=== PATIENT | male | born 1985 | race Caucasian/White ===

== ENCOUNTER 2023-10-03 11:58 | Outpatient (REF) | payer OTHER, SELFPAY ==
--- NOTE | ~2023-10-03 | XR_ITS ---
EXAMINATION: XR HIP, RIGHT CLINICAL INFORMATION: Right hip pain. COMPARISON: None available. TECHNIQUE: AP and frog-leg lateral views of the right hip. FINDINGS: There is a small 4 mm calcification at the anterior margin of the greater trochanter, most consistent with calcific tendinitis. A small 3 r focus of calcific tendinitis is present at the right ischial tuberosity. Mild osteoarthritis in the right hip with axial joint space narrowing and small marginal osteophytes. No fracture or malalignment. Soft tissues are normal. XR/XR hip RT min 2V IMPRESSION: 1. Small foci of calcific tendinitis at the greater trochanter and ischial tuberosity. 2. Mild osteoarthritis in the right hip.
== END 2023-10-03 11:59 | disposition home or self-care (01) ==
LOC: HO.HHCX 11:58
PROVIDERS: Visit Provider Student in an Organized Health Care Education/Training Program
DX: M91.11 Juvenile osteochondrosis of head of femur [Legg-Calve-Perthes], right leg (principal)
CPT/HCPCS: 73502

== ENCOUNTER 2024-08-21 10:30 | Outpatient (REF) | payer MEDICAID, SELFPAY ==
--- NOTE | ~2024-08-21 | XR_ITS ---
EXAMINATION: XR CERVICAL SPINE CLINICAL INFORMATION: neck pain COMPARISON: None available. TECHNIQUE: 3 views of the cervical spine were obtained. FINDINGS: No significant scoliosis. Normal lordosis. No fracture, compression deformity, or suspicious bone lesion. There is a trace degenerative retrolisthesis of C5 on C6. Alignment is otherwise anatomic. Craniocervical junction and C1-2 articulation are intact and aligned. Moderate disc degeneration noted at C5-6. Mild changes at C6-7. Disc spaces otherwise normal. Normal facet alignment. Very mild multilevel degenerative facet change. No prevertebral or paravertebral soft tissue abnormality. Clear lung apices. XR/XR cervical spine 3V IMPRESSION: 1. No acute bony abnormalities. 2. Mild cervical spondylosis most significant C5-6. Electronically signed by: Marbin Perez MD 08/24/2024 10:37 AM EDT
--- OUTSIDE RECORDS SUMMARY | 2024-08-21 12:05 | XMS_ITS | Clinical Summary ---
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 Name Role Phone Unavailable Primary Care Provider Unavailabl e Social History Tobacco Use Types Packs/Day Years Used Date Smoking Tobacco: Never Assessed Sex and Gender Information Value Date Recorded Sex Assigned at Not on file Legal Sex Male 1:36 PM EDT Gender Identity Not on file Sexual Orientation Not on file Plan of Treatment Health Maintenance Due Date Last Done Comments DTaP,Tdap,and Td Vaccines (1 - Tdap) 2005 Hepatitis B Vaccines (1 of 3 - 19+ 3-dose series) 2005 Cholesterol Screening (Lipid Panel) 12/11/2023 Depression Screening 12/11/2023 HIV Screening 12/11/2023 Hepatitis C Screening 12/11/2023 Social Influencers of Health Screening 12/11/2023 COVID-19 Vaccine (2023-2 5 season) 2024 Influenza Vaccine (Season Ended) 2025 HIB Vaccines Aged Out No longer eligi ble based on patient's age to complete this topic HPV Vaccines Aged Out No longer eligi ble based on patient's age to complete this topic Hepatitis A Vaccines Aged Out No long er eligible based on patient's age to complete this topic IPV Vaccines Aged Out No longer eligi ble based on patient's age to complete this topic MMR Vaccines Aged Out No longer eligi ble based on patient's age to complete this topic Meningococcal ACWY Vaccine Aged Out N o longer eligible based on patient's age to complete this topic Meningococcal B Vacine Aged Out No lo nger eligible based on patient's age to complete this topic Pneumococcal Vaccine: Pediat rics (0 to 5 Years) and At-Risk Patients (6 to 64 Years) Aged Out No longer eligible b ased on patient's age to complete this topic RSV Immunization Patients Un carlos a 20 months Aged Out No longer eligible b ased on patient's age to complete this topic Varicella Vaccines Aged Out No longer eligible based on patient's age to complete this topic
== END 2024-08-21 10:31 | disposition home or self-care (01) ==
LOC: HO.XRAY 10:30
PROVIDERS: PCP Student in an Organized Health Care Education/Training Program; Visit Provider Student in an Organized Health Care Education/Training Program
DX: M54.2 Cervicalgia (principal)
CPT/HCPCS: 72040

== ENCOUNTER → 2024-08-21 10:53 | Outpatient (BNV) | payer OTHER, MEDICAID, SELFPAY | PROVIDERS: PCP Student in an Organized Health Care Education/Training Program; Visit Provider Radiology Diagnostic Radiology | DX: M54.2 Cervicalgia (principal) | CPT/HCPCS: 72040 ==